=== PATIENT | female | born 1960 | race Caucasian/White ===

== ENCOUNTER 2019-02-21 08:00 | Outpatient (CLI) | payer BC ==
[2019-02-21 16:08] LABS: CHOL/HDL RATIO 3.1 (<4.4); CHOLESTEROL 200 mg/dL; HDL CHOLESTEROL 64 mg/dL; LDL CHOLESTEROL,CALCULATED 115 mg/dL; LDL/HDL RATIO 1.8 (<4.4); VLDL CHOLESTEROL 21 mg/dL
== END 2019-02-21 08:01 | disposition home or self-care (01) ==
LOC: LAB 08:00
PROVIDERS: ATTEND Student in an Organized Health Care Education/Training Program
DX: Z01.419 Encounter for gynecological examination (general) (routine) without abnormal findings (principal)
CPT/HCPCS: 36415; 80061; 83721

== ENCOUNTER 2020-05-21 07:19 | Outpatient (CLI) | payer BC ==
[2020-05-21 15:43] LABS: CHOL/HDL RATIO 3.1 (<4.4); CHOLESTEROL 203 mg/dL; HDL CHOLESTEROL 66 mg/dL; LDL CHOLESTEROL,CALCULATED 127 mg/dL; LDL/HDL RATIO 1.9 (<4.4); VLDL CHOLESTEROL 10 mg/dL
== END 2020-05-21 07:20 | disposition home or self-care (01) ==
LOC: LAB.S 07:19
PROVIDERS: ATTEND Student in an Organized Health Care Education/Training Program
DX: Z13.6 Encounter for screening for cardiovascular disorders (principal)
CPT/HCPCS: 36415; 80061; 83721

== ENCOUNTER 2020-08-03 07:40 | Outpatient (CLI) | payer BC | END 2020-08-03 07:41 | disposition home or self-care (01) | LOC: LAB 07:40 | PROVIDERS: ATTEND Nurse Practitioner Family | DX: R53.83 Other fatigue (principal) | CPT/HCPCS: 84480 ==

== ENCOUNTER 2022-02-27 08:19 | Outpatient (CLI) | payer BC ==
[2022-02-27 08:56] LABS: CHOL/HDL RATIO 3.4 (<4.4); CHOLESTEROL 222 mg/dL; HDL CHOLESTEROL 65 mg/dL; LDL CHOLESTEROL,CALCULATED 146 mg/dL; LDL/HDL RATIO 2.2 (<4.4); TRIGLYCERIDES 57 mg/dL; VLDL CHOLESTEROL 11 mg/dL
[2022-02-27 12:34] LABS: ESTIMATED AVERAGE GLUCOSE 105 mg/dL (70-100); HEMOGLOBIN A1c% 5.3 % (4.27-6.07)
== END 2022-02-27 08:20 | disposition home or self-care (01) ==
LOC: LAB 08:19
PROVIDERS: ATTEND Student in an Organized Health Care Education/Training Program
DX: R73.01 Impaired fasting glucose (principal); Z13.6 Encounter for screening for cardiovascular disorders
CPT/HCPCS: 36415; 80061; 83036; 83721

== ENCOUNTER 2023-04-20 08:08 | Outpatient (CLI) | payer BC ==
[2023-04-20 08:32] LABS: CHOLESTEROL 173 mg/dL; HDL CHOLESTEROL 57 mg/dL; LDL CHOLESTEROL,CALCULATED 100 mg/dL; LDL/HDL RATIO 1.8 (<4.4); TRIGLYCERIDES 82 mg/dL (48-352); VLDL CHOLESTEROL 16 mg/dL
== END 2023-04-20 08:09 | disposition home or self-care (01) ==
LOC: LAB 08:08
PROVIDERS: ATTEND Student in an Organized Health Care Education/Training Program
DX: Z79.899 Other long term (current) drug therapy (principal)
CPT/HCPCS: 36415; 80061; 83721